=== PATIENT | female | born 1995 | race Hispanic/Latino ===

== ENCOUNTER 2018-03-27 22:29 | Emergency (ER) | payer MEDICAID, OTHER ==
[2018-03-27] MEDS ORDERED: KETOROLAC TROMETHAMINE 60 MG/2 ML VIAL ONE (22:42)
[2018-03-27] MEDS ORDERED: LORAZEPAM 2 MG/ML 1 ML VIAL ONE (22:43)
[2018-03-28] MEDS ORDERED: ACETAMINOPHEN-CODEINE 300/30MG TAB ONE (00:05)
== END 2018-03-28 00:46 | disposition home or self-care (01) ==
LOC: EDH 22:29
DX: S76.911A Strain of unspecified muscles, fascia and tendons at thigh level, right thigh, initial encounter (principal); Z98.890 Other specified postprocedural states; X58.XXXA Exposure to other specified factors, initial encounter; Y93.61 Activity, american tackle football; Y92.39 Other specified sports and athletic area as the place of occurrence of the external cause; Y99.8 Other external cause status
CPT/HCPCS: 29505; 73552; 96372 ×2; 99284; J1885; J2060